=== PATIENT | male | born 1995 | race African-American/Black ===

== ENCOUNTER 2025-05-24 18:39 | Emergency (ER) | payer OTHER ==
[~2025-05-24] VITALS: Ht 177.8 cm; Wt 68.2 kg
[2025-05-24 19:24] VITALS: O2SAT 99
[2025-05-24] MEDS ORDERED: BO1 TP (20:40)
[2025-05-24] MEDS ORDERED: ACET-2708 MT (20:40)
[2025-05-24] MEDS: ACETAMINOPHEN 500MG TABLET PO ONE (20:41)
[2025-05-24] MEDS: BACITRACIN ZINC OINT UDPKT TOP ONE (20:53)
[2025-05-24 20:59] VITALS: BP 123/78; PULSE 64; RESP 15; TEMP 36.4; O2SAT 98
== END 2025-05-24 21:01 | disposition home or self-care (01) ==
LOC: ER 18:39
DX: S50.812A Abrasion of left forearm, initial encounter (principal); Z79.899 Other long term (current) drug therapy; V98.8XXA Other specified transport accidents, initial encounter; Y93.89 Activity, other specified; Y92.89 Other specified places as the place of occurrence of the external cause; Y99.8 Other external cause status
CPT/HCPCS: 99283; Z7610